=== PATIENT | male | born 1960 | race Caucasian/White ===

== ENCOUNTER 2019-05-25 00:32 | Day surgery (SDC) | payer MEDICARE, OTHER, SELFPAY ==
[2019-05-24 13:10] VITALS: BMI 30.4
[2019-05-25 09:37] VITALS: BP 142/74; PULSE 100; RESP 18; O2SAT 94
--- NOTE | 2019-05-25 09:49 | P.HP_ITS ---
History of Present Illness History of Present Illness Consent: Risks, benefits, and alternatives have been discussed and questions answered. Patient agrees to proceed with procedure. Chief complaint: Hx Colon Polyps Narrative: Sohail Vo is a 58 year old male with history of colon polyps [facility] Social History Social History Alcohol intake: current Meds Home Medications and Allergies Home Medications Medication Instructions Recorded Confirmed Type amlodipine 5 mg PO DAILY 05/24/19 05/24/19 History atorvastatin 20 mg PO DAILY 05/24/19 05/24/19 History carvedilol 6.25 mg PO DAILY 05/24/19 05/24/19 History oxycodone-acetaminophen 10 - 325 tablet PO Q4-5H 05/24/19 05/24/19 History pregabalin 150 mg PO TID 05/24/19 05/24/19 History tizanidine 4 mg PO DAILY PRN 05/24/19 05/24/19 History Allergies Allergy/AdvReac Type Severity Reaction Status Date / Time peanut Allergy Unknown FACE Unverified 05/25/19 09:36 SWELLING/HIVES Penicillins Allergy Unknown Unknown Verified 05/25/19 09:36 Vital Signs Vital Signs - 24 hr 05/25/19 09:37 Pulse Rate 100 Respiratory Rate 18 Blood Pressure 142/74 H Pulse Oximetry 94 Exam Resp: Auscultation: clear to auscultation bilaterally Cardio: Rate: regular rate Rhythm: regular rhythm GI: GI Palp: Yes Soft to palpation and No Tenderness to palpation present (GI) Assessment and Plan Assessment and plan (1) Personal history of colonic polyps: Code(s): Z86.010 - Personal history of colonic polyps Status: Acute Assessment and Plan: Colonoscopy with possible biopsy or polypectomy or cautery or injection of substances.
--- NOTE | 2019-05-25 09:57 | P.PNAN_ITS ---
Anes - Initial Pre Proc Eval Procedure: Operation Date: 05/25/19 10:30 Proposed Procedures p Screening Colonoscopy - Sohail Pulliam MD Date/Time: 05/25/19 09:57 Surgeon: Sohail Pulliam MD Pre Op Diagnosis: Hx Colon Polyps Patient Data Age: 58 Gender: M Height: 6 ft Weight: 101.7 kg Last Vital Signs Pulse 100 05/25/19 09:37 Resp 18 05/25/19 09:37 BP 142/74 H 05/25/19 09:37 Pulse Ox 94 05/25/19 09:37 Allergies Allergy/AdvReac Type Severity Reaction Status Date / Time peanut Allergy Unknown FACE Unverified 05/25/19 09:36 SWELLING/HIVES Penicillins Allergy Unknown Unknown Verified 05/25/19 09:36 Home Medications Medication Instructions Recorded Confirmed Type amlodipine 5 mg PO DAILY 05/24/19 05/24/19 History atorvastatin 20 mg PO DAILY 05/24/19 05/24/19 History carvedilol 6.25 mg PO DAILY 05/24/19 05/24/19 History oxycodone-acetaminophen 10 - 325 tablet PO Q4-5H 05/24/19 05/24/19 History pregabalin 150 mg PO TID 05/24/19 05/24/19 History tizanidine 4 mg PO DAILY PRN 05/24/19 05/24/19 History Patient hx anesthesia problems: none Family hx anesthesia problems: none [facility] Past Medical History Medical History (Updated 05/25/19 @ 09:58 by Shamir Mahmood MD) Chronic pain syndrome Hyperlipidemia Hypertension Social History Social History Alcohol intake: current Anes - Eval Final PreProcedure Day of Procedure 05/25/19 09:57 Patient weight: obese Heart: regular rate and rhythm Lungs: decreased breath sounds Airway: Mallampati scale class II Neurological: alert and oriented Last oral intake: >/= 8 hours ASA classification: III Emergent: no Anesthetic plan: proceed Anesthesia type and monitoring: general GIVS and standard monitoring Informed Consent: The patient's anesthetic plan and its attendant risks and bene fits were discussed with the patient/family/POA. Questions were solicited and answers provided to the satisfaction of the patient/family/POA.
[2019-05-25] MEDS: LACTATED RINGERS 1,000 ML 150 ML IV CONT (10:02)
[2019-05-25 10:50] VITALS: BP 120/68; PULSE 73; RESP 12; O2SAT 95
[2019-05-25 10:55] VITALS: BP 129/66; PULSE 75; RESP 20; O2SAT 98
[2019-05-25 11:05] VITALS: BP 148/91; PULSE 71; RESP 16; O2SAT 97
== END 2019-05-25 11:15 | disposition home or self-care (01) ==
PROVIDERS: PCP Internal Medicine; Visit Provider Internal Medicine Gastroenterology
PROC: 0DJD8ZZ Inspection of Lower Intestinal Tract, Via Natural or Artificial Opening Endoscopic (ICD-10-PCS; CPT 45378; principal; 2019-05-25 10:30)
DX: Z12.11 Encounter for screening for malignant neoplasm of colon (principal); D12.2 Benign neoplasm of ascending colon; D12.3 Benign neoplasm of transverse colon; K62.1 Rectal polyp; K57.30 Diverticulosis of large intestine without perforation or abscess without bleeding; I10 Essential (primary) hypertension; E78.5 Hyperlipidemia, unspecified; G89.4 Chronic pain syndrome; Z79.891 Long term (current) use of opiate analgesic; E66.9 Obesity, unspecified; Z68.30 Body mass index [BMI] 30.0-30.9, adult
CPT/HCPCS: 45385; 45381; 88305; J2704; J7120

== ENCOUNTER 2020-07-01 21:18 | Emergency (ER) | payer MEDICARE, OTHER, SELFPAY ==
[2020-07-01] VITALS (7 sets, daily range): BP systolic 67–160; BP diastolic 45–101; PULSE 73–87; RESP 12–19; TEMP 36.3; O2SAT 97–99
--- NOTE | ~2020-07-01 | XR_ITS ---
EXAMINATION: XR chest 1V portable DATE: 07/01/2020 21:46 INDICATION: Transient ischemic episode. Weakness. TECHNIQUE: frontal view of the chest was obtained. COMPARISON: Chest radiograph dated 09/11/2016 FINDINGS: The lungs remain clear with no focal airspace opacities, pulmonary edema, pleural effusion or pneumot horax. The cardiomediastinal silhouette is normal. Calcified mediastinal lymph node consistent with o ld granulomatous disease. IMPRESSION: 1. No acute cardiopulmonary disease. Reviewed, dictated and finalized at location A.
--- NOTE | ~2020-07-01 | CT_ITS ---
EXAMINATION: CTA BRAIN/CAROTID DATE: 07/01/2020 22:56 INDICATION: Left arm weakness TECHNIQUE: Computed tomographic angiography (CTA) of the head and neck was performed with 100 mL Omni paque-350 intravenous contrast. Multiplanar reconstructions and maximum intensity projection 3D-recon structions of the carotid arteries and of the intracranial arteries were created by the technologist on a separate workstation. Precontrast CT of the head was also obtained. Automated exposure control and iterative reconstruction technique were employed.The dose-length product was 1674.07 mGy-cm. COMPARISON: 12/05/2014 FINDINGS: Carotid arteries: There is 40% stenosis of the right carotid bulb relative to normal distal artery lumen diameter (NASC ET criteria). The right internal carotid artery is however relatively uniformly decreased in size rel ative to the contralateral left internal carotid artery beginning at the level of the stenosis at the right carotid bulb and extending through the carotid siphons. There is 30% stenosis of the left vargas tid bulb relative to normal distal artery lumen diameter. Mild atherosclerotic plaque without hemody namically significant stenosis at the origin of the great arteries arising from the 18th of the visua lized aortic arch. No evident atherosclerotic plaque along the cervical portions of the codominant bi lateral vertebral arteries. Visualized cervical soft tissues are unremarkable. Mild biapical emphysem a. Head: No acute intracranial hemorrhage, acute infarction or abnormal extra axial fluid collection. Ventricl es are normal and symmetric. No mass/mass effect. Moderate mucosal thickening throughout the paranasa l sinuses most prominent in the bilateral ethmoid and right sphenoid and left frontal sinuses. The or bits and mastoid air cells are normal. 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 Intracranial arteries The right internal carotid artery remains diminutive at the carotid siphon with prominent atheroscler otic calcifications with likely high-grade stenosis or possibly occlusion at the level of the caver[place] us portion. Contrast is seen in the more distal ophthalmic portion of the artery potentially arising from collateral flow from the ophthalmic artery. The right internal carotid artery appears to occlude in the region of its. There is a blush of contrast likely representing lenticulostriate parietal whi ch appear to supply the more distal right middle cerebral artery. The right anterior cerebral artery appears to be supplied primarily via the left A1 segment and a patent anterior to indicating artery. There is asymmetric increased prominence of the contrast opacified cerebral vasculature throughout th e right cerebral hemisphere relative to the left suggesting either luxury perfusion or dural collater alization. Mild atherosclerotic plaque without significant stenosis at the left carotid siphon. The l eft A1 and M1 segments are patent. There is no hemodynamically significant stenosis in the vertebral and basilar arteries. Vertebral arteries are codominant. Bilateral P1 segments are patent. There are no aneurysms identified. IMPRESSION: 1. 30% stenosis of the left carotid bulb relative to normal distal artery lumen diameter (NASCET crit eria). 2. 40% stenosis of the right carotid bulb relative to a diameter of the more distal right internal ca rotid artery which remains diminutive to the level of the carotid siphon where there appears to be a high-grade stenosis versus occlusion. 3. 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
--- NOTE | 2020-07-01 21:25 | ECG_ITS ---
Measurements Intervals [place] Rate: 80 P: 55 UT: 153 QRS: -29 QRSD: 105 T: 31 QT: 357 QTc: 413 Interpretive Statements SINUS RHYTHM INFERIOR INFARCT, AGE INDETERMINATE BASELINE ARTIFACT- II, AVF, V1, V4-V6 ABNORMAL ECG Electronically Signed On 07-02-2020 8:44:42 CDT by Ghassan Mcdaniels D.O.
--- NOTE | 2020-07-01 21:31 | ED.NEUROSD ---
HPI - Neuro Symptoms/Deficit General Chief Complaint: Neuro Symptoms/Deficit Stated Complaint: I'm having mini strokes. Time Seen by Provider: 07/01/20 21:31 History of Present Illness HPI Narrative: 60 yo male w/ h/o TIA presnets to the ED c/o mini strokes . He reports that he has been feeling weak for the past 3 days. At times he had difficulty walking and suffered to falls at home. He also reports that at one point he was unable to use his left hand although he reports that it seems to be back to normal now. he says that he had simila symptoms in th past. He believes that he was told at the time that his carotid artery was blocked, but there was nothing that they could do about it. He has an MRI of his brain from 2014 which was read as normal. Related Data Home Medications Medication Instructions Recorded Confirmed amlodipine 5 mg PO DAILY 05/24/19 05/25/19 atorvastatin 20 mg PO DAILY 05/24/19 05/25/19 carvedilol 6.25 mg PO DAILY 05/24/19 05/25/19 oxycodone-acetaminophen 10 - 325 tablet PO Q4-5H 05/24/19 05/25/19 pregabalin 150 mg PO TID 05/24/19 05/24/19 tizanidine 4 mg PO DAILY PRN 05/24/19 05/24/19 Allergies Allergy/AdvReac Type Severity Reaction Status Date / Time peanut Allergy Unknown FACE Verified 07/01/20 21:25 SWELLING/HIVES Penicillins Allergy Unknown Unknown Verified 07/01/20 21:25 Review of Systems Review of Systems: All systems reviewed & are unremarkable except as noted in HPI and below Constitutional: Constitutional: Denies chills, Denies fever(s) and Reports weakness Eyes: Eyes: Reports no additional eye complaints Cardiovascular: Cardiovascular: Denies chest pain Respiratory: Respiratory: Denies dyspnea Gastrointestinal: Gastrointestinal: Denies abdominal pain, Denies diarrhea, Denies nausea and Denies vomiting Genitourinary: Genitourinary: Reports no additional male genitourinary complaints Neurologic: Denies confusion, Reports dizziness, Denies syncope, Reports numbness and Reports weakness PMFSH Past Medical History Medical History Chronic pain syndrome Hyperlipidemia Hypertension Social History Social History Alcohol intake: current Exam Const: General: no acute distress and alert Orientation/consciousness: patient oriented x3 HENMT: Head: normal to inspection Eyes: Pupils: Equal, round and reactive pupils present EOM: EOMs intact bilaterally Neck: Neck: normal visual inspection Resp: Effort & Inspection: normal respiratory effort Auscultation: clear to auscultation bilaterally Cardio: Rate: regular rate Rhythm: regular rhythm GI: Inspection: non-distended GI Palp: Yes Soft to palpation and No Tenderness to palpation present (GI) Skin: General skin exam: normal color Neuro: General: patient oriented x3, moves all extremities, no focal motor deficits and CN's II-XI intact bilaterally Speech: normal speech Other: 5/5 strength throughout Course Vital Signs Vital signs: Vital Signs Temperature 36.3 C L 07/01/20 21:22 Pulse Rate 87 07/01/20 21:22 Respiratory Rate 16 07/01/20 21:22 Blood Pressure 119/62 07/01/20 21:22 Pulse Oximetry 97 07/01/20 21:22 Temperature 36.3 C L 07/01/20 21:22 Pulse Rate 87 07/01/20 21:22 Respiratory Rate 16 07/01/20 21:22 Blood Pressure 119/62 07/01/20 21:22 Pulse Oximetry 97 07/01/20 21:22 MDM - Neuro Symptoms/Deficit MDM Narrative Medical decision making narrative: Transfer arranged to [facility] Differential Diagnosis Differential diagnosis: Likely cerebrovascular accident, transient cerebral ischemia and other (near syncope) Medical Records Attestation: I reviewed the patient's medical records. Lab Data Attestation: I reviewed the patient's lab results. Result diagrams: 07/01/20 22:07 07/01/20 22:07 Labs: Lab Results 07/01/2007/01
[2020-07-01] MEDS: SODIUM CHLORIDE 0.9% IV 1,000 ML 999 ML IV CONT ×2 (22:04→22:38)
[2020-07-01 22:16] LABS: Basophils Percent Auto 0.5 % (0.2-1.2); Eosinophils Absolute Auto 0.1 K/mm3 (0-0.3); Eosinophils Percent Auto 1.2 % (0-4.4); Hematocrit 44.6 % (42.0-52.0); Hemoglobin 15.2 g/dL (14.0-18.0); Immature Granulocyte Absolute 0.03 K/mm3 (0.00-0.031); Immature Granulocyte Percent A 0.4 % (0-0.5); Immature Platelet Fraction Pct 5.5 % (0.9-11.2); Lymphocytes Absolute Auto 2.71 K/mm3 (0.9-3.2); Lymphocytes Percent Auto 34.7 % (18.3-44.2); Mean Corpuscular HGB Conc 34.1 g/dl (32-36); Mean Corpuscular Hemoglobin 33.8 pg (26-34); Mean Corpuscular Volume 99.1 fl (80-100); Monocytes Percent Auto 12.6 % (2.6-8.5); Neutrophils Percent Auto 50.6 % (45.5-73.1); Platelet Count Result 120 k/mm3 (150-375); Red Cell Distribution Width 13.1 % (11.5-14.5); White Blood Count 7.8 K/mm3 (4.5-10.0)
[2020-07-01 22:24] LABS: INR 1.1; Prothrombin Time 14.4 Seconds (11.1-14.7)
[2020-07-01 22:24] LABS: Anion Gap 8 mmol/L (8-16); Blood Urea Nitrogen 13 mg/dL (9-20); Calcium 9.2 mg/dL (8.4-10.2); Carbon Dioxide 27 mmol/L (22-30); Chloride 107 mmol/L (98-107); Estimated CRCL calculation 104 ml/min; Estimated Glomerular Filt Rate > 60; Glucose 111 mg/dL (75-110); Potassium 3.6 mmol/L (3.4-5.0); Sodium 142 mmol/L (137-145)
[2020-07-01 22:25] LABS: Partial Thromboplastin Time 28.9 SECONDS (22.3-36.8)
[2020-07-01 22:35] LABS: Troponin I 0.012 ng/mL (0.000-0.034)
[2020-07-01] MEDS: MORPHINE SULFATE (*CRX) 2 MG/ML INJ IV PUSH (23:49)
[2020-07-02] VITALS: BP 184/97; PULSE 81; RESP 13; O2SAT 99
--- NOTE | 2020-07-02 00:34 | PC.NURSE ---
Soha from [facility] patient transfer called with Room for patient....[facility] ROOM 510. [phone] to call report.
[2020-07-02 00:36] LABS: Add Urine Microscopic? NO; Appearance Urine Clear (Clear); Bilirubin Urine Negative (Negative); Blood Urine Negative (Negative); Color Urine Yellow (Yellow); Glucose Urine UA Negative (Negative); Ketones Urine Negative (Negative); Leukocyte Esterase Ur Negative LEU/UL (Negative); Nitrate Urine Negative (Negative); Protein Urine Negative (Negative); Urobilinogen Urine Negative mg/dL (<2.0)
[2020-07-02 01:00] VITALS: BP 187/101; PULSE 86; RESP 13; O2SAT 98
--- NOTE | 2020-07-02 01:00 | PC.NURSE ---
Addendum entered by Christine Cordova 07/02/20 02:47: UPDATED ETA...[id number] Original Note: Called [facility] to transport patient to [facility] ROOM 510. ETA [id number]
[2020-07-02 02:00] VITALS: BP 196/108; PULSE 89; RESP 15; O2SAT 99
[2020-07-02] MEDS: HYDROmorphone HCL INJ (*CRX) 1 MG/ML SYR IV PUSH (02:24)
[2020-07-02 03:00] VITALS: BP 171/86; PULSE 85; RESP 15; O2SAT 97
[2020-07-02 03:30] VITALS: BP 167/80; PULSE 86; RESP 15; O2SAT 97
== END 2020-07-02 04:00 | disposition short-term general hospital (02) ==
PROVIDERS: Emergency Medicine; Emergency Provider Emergency Medicine; PCP Internal Medicine
DX: I65.23 Occlusion and stenosis of bilateral carotid arteries (principal); E78.5 Hyperlipidemia, unspecified; I10 Essential (primary) hypertension; G89.4 Chronic pain syndrome; Z86.73 Personal history of transient ischemic attack (TIA), and cerebral infarction without residual deficits; R94.31 Abnormal electrocardiogram [ECG] [EKG]
CPT/HCPCS: 36415; 70496; 70498; 71045; 80048; 81003; 84484; 85025; 85055; 85610; 85730; 93005; 96361; 96374; 96375; 99285; J1170; J2270; J7030; Q9967